=== PATIENT | male | born 1975 | race Caucasian/White ===

== ENCOUNTER 2018-02-24 10:46 | Emergency (ER) | payer BC ==
[2018-02-24 11:51] LABS: ABS Basophils 0 10^3/ul (0-0.2); ABS Eosinophils 0 10^3/ul (0-0.6); ABS Lymphocytes 0.6 10^3/ul (1.0-4.8); ABS Monocytes 0.3 10^3/ul (0-0.8); ABS Neutrophils 6.8 10^3/ul (1.5-7.7); ABS Nucleated RBC 0 10^3/ul; Eosinophil % 0.5 % (0-6); Hematocrit 44 % (42-52); Hemoglobin 15.1 g/dl (14.0-18.0); Lymphocyte % 7.3 % (25-47); Mean Corpuscular HGB Conc 34 g/dl (31-36); Mean Corpuscular Hemoglobin 31 pg (27-31); Mean Corpuscular Volume 90 fL (80-94); Nucleated Red Blood Cells % 0; Platelet Count 193 10^3/ul (150-450); Red Blood Count 4.88 10^6/ul (4.00-5.40); Red Cell Distribution Width 13 % (10.5-15); White Blood Count 7.8 10^3/ul (3.5-10.8)
[2018-02-24 12:01] LABS: INR 0.87 (0.77-1.02)
[2018-02-24 12:05] LABS: EGFR Non-African American 27.2 (>60)
--- NOTE | 2018-02-24 12:30 | RAD ---
Indication: Sternal chest pain. Post partial RIGHT lung resection approximately 20 years ago. Comparison: March 04, 2014 CT. Technique: Upright AP 1158 hours Report: Mild bilateral apical pleural-parenchymal scarring. Minimal linear scarring at the RIGHT lung base approximating the diaphragm corresponding with the prior surgical site based on correlation with CT. No alveolar consolidation, suspicious focal pulmonary lesion, pleural effusion, or pneumothorax. The heart, pulmonary vasculature, and mediastinal contours are unremarkable. IMPRESSION: #. No evidence for acute intrathoracic disease.
--- NOTE | 2018-02-24 14:44 | ECHO ---
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 Technical Comments: The study quality is good. Completed at 1318. Left Ventricle: The left ventricular chamber size is normal. Mild concentric left ventricular hypertrophy is observed. Left ventricular systolic function is at the lower limits of normal. The estimated ejection fraction is 50-55%. Normal left ventricular diastolic filling is observed. Left Atrium: The left atrial chamber size is normal. Right Ventricle: The right ventricular cavity size is normal. The right ventricular global systolic function is normal. Right Atrium: The right atrial cavity size is normal. Aortic Valve: The aortic valve is trileaflet. There is no evidence of aortic regurgitation. There is no evidence of aortic stenosis. Mitral Valve: The mitral valve leaflets are mildly thickened. There is a trace of mitral regurgitation. There is no evidence of mitral stenosis. Tricuspid Valve: The tricuspid valve leaflets are normal. There is trace tricuspid regurgitation. Unable to estimate the right ventricular systolic pressure. There is no tricuspid stenosis. Pulmonic Valve: The pulmonic valve appears normal. There is trace to mild pulmonic regurgitation. There is no pulmonic stenosis. Pericardium: There is no significant pericardial effusion. Aorta: There is mild dilatation of the ascending aorta. There is no dilatation of the aortic arch. There is no dilation of the aortic root. Pulmonary Artery: The main pulmonary artery is not well visualized. Venous: The inferior vena cava appears normal in size. There is a greater than 50% respiratory change in the inferior vena cava dimension. Conclusions The left ventricular chamber size is normal. Mild concentric left ventricular hypertrophy is observed. Left ventricular systolic function is at the lower limits of normal. The estimated ejection fraction is 50-55%. Normal left ventricular diastolic filling is observed. The left atrial chamber size is normal. The right ventricular cavity size is normal. The right ventricular global systolic function is normal. There is no significant pericardial effusion. No significant valvular abnormalities noted There is mild dilatation of the ascending aorta. There is no dilation of the aortic root. Compared to prior study from 09/2017, LVEF has improved from 45-50% Measurements Name Value Normal Range RVIDd (AP) 2D 2.7 cm (0.9 - 2.6) RVDdMajor (2D) 3.9 cm (2.2 - 4.4) RAd ISD 4CH 4.7 cm (3.4 - 4.9) RA (A4C)W 3.8 cm (2.9 - 4.6) IVSd (2D) 1.3 cm (0.6 - 1) LVPWd (2D) 1.3 cm (0.6 - 1) LVIDd (2D) 4.4 cm (3.6 - 5.4) LVIDs (2D) 2.8 cm - LV FS (2D) 36 % (25 - 45) Aortic Annulus 2.2 cm (1.4 - 2.6) Ao root diameter (2D) 3.5 cm (2.1 - 3.5) Ascending Ao 3.6 cm (2.1 - 3.4) Aortic arch 2.1 cm (1.8 - 3.4) Descending Ao 1.3 cm - LA dimension (AP) 2D 3.5 cm (2.3 - 3.8) LAd ISD 4CH 3.9 cm (2.9 - 5.3) LA ISD 4CH W 3.5 cm (2.5 - 4.5) Name Value Normal Range LA ESV SP 4CH (A/L) 34 ml - LA ESV SP 2CH (A/L) 40 ml - LA ESV BP (A/L) 41 ml - LA ESV BP (A/L) index 20.94 ml/m2 - LA ESV SP 4CH (MOD) 29 ml - LA ESV SP 2CH (MOD) 37 ml - Name Value Normal Range MV E-wave Vmax 0.6 m/sec - MV deceleration time 160 msec - MV A-wave Vmax 0.5 m/sec - MV E:A ratio 1.07 ratio - LV septal e' Vmax 0.1 m/sec - LV lateral e' Vmax 0.1 m/sec - LV E:e' septal ratio 6 ratio - LV E:e' lateral ratio 6 ratio - Name Value Normal Range AV Vmax 1.2 m/sec - AV VTI 26.3 cm - AV peak gradient 5.95 mmHg - AV mean gradient 3.1 mmHg - LVOT Vmax 0.8 m/sec - LVOT VTI 16.5 cm - LVOT peak gradient 2.56 mmHg - LVOT mean gradient 1.27 mmHg - Name Value Normal Range IVC diameter 1.4 cm - Name Value Normal Range PV Vmax 1 m/sec - PV peak gradient 4.14 mmHg -
--- NOTE | 2018-02-24 15:30 | ED ---
HPI Chest Pain - HPI Summary HPI Summary: Sternal CP x 2-3 days. Intermittent. Worse w/ leaning forward. Denies .... Missed evening doses of metoprolol previous 2 nights (took last night and this morning w/ other BP meds, losartan and amlidipine). - History of Current Complaint Chief Complaint: EDChestPainROMI Time Seen by Provider: 02/24/18 11:06 Hx Obtained From: Patient, Family/Insulation Worker Apprentice - Pain Intensity: 1 - Allergy/Home Medications Allergies/Adverse Reactions: Allergies Allergy/AdvReac Type Severity Reaction Status Date / Time adhesive tape Allergy Rash Verified 02/24/18 12:58 methotrexate Allergy Anaphylatic Verified 02/24/18 12:58 Shock Home Medications: Home Medications Losartan TAB* [Cozaar TAB*] 25 mg PO DAILY 02/24/18 [History Confirmed 02/24/18] Metoprolol Succinate XL TAB* [Toprol XL TAB*] 37.5 mg PO DAILY 02/24/18 [ History Confirmed 02/24/18] amLODIPine TAB* [Norvasc 5 mg TAB*] 5 mg PO DAILY 02/24/18 [History Confirmed ] PMH/Surg Hx/FS Hx/Imm Hx Endocrine/Hematology History: Denies: Hx Diabetes, Hx Thyroid Disease Cardiovascular History: Reports: Hx Hypertension Respiratory History: Denies: Hx Asthma, Hx Chronic Obstructive Pulmonary Disease (COPD) GI History: Denies: Hx Ulcer - Cancer History Cancer Type, Location and Year: [facility]-2000 - Surgical History Surgery Procedure, Year, and Place: total knee resection-RIGHT 2001 and 2010. Right lung surgery 2002 Infectious Disease History: No Infectious Disease History: Denies: Hx Clostridium Difficile, Hx Hepatitis, Hx Human Immunodeficiency Virus (HIV), Hx of Known/Suspected MRSA, Hx Shingles, Hx Tuberculosis, Hx Known/ Suspected VRE, Hx Known/Suspected VRSA, History Other Infectious Disease, Traveled Outside the [place] in Last 30 Days - Social History Alcohol Use: Daily Substance Use Type: Reports: None Smoking Status (MU): Light Every Day Tobacco Smoker Type: Cigarettes Amount Used/How Often: Light smoker Length of Time of Smoking/Using Tobacco: 3-4 years Physical Exam Vital Signs On Initial Exam: Initial Vitals Temp Pulse Resp BP Pulse Ox 98.7 F 65 14 136/90 99 02/24/18 11:00 08/17/18 11:00 02/24/18 11:00 02/24/18 11:00 02/24/18 11:00 Diagnostics - Vital Signs Vital Signs Temp Pulse Resp BP Pulse Ox 02/24/18 14:08 12 156/95 02/24/18 14:00 12 02/24/18 13:38 65 13 142/95 99 02/24/18 13:12 97 02/24/18 13:08 65 12 142/95 98 02/24/18 13:00 66 14 97 02/24/18 12:38 60 14 123/82 97 02/24/18 12:08 72 16 148/105 97 02/24/18 12:00 64 13 98 02/24/18 11:38 64 16 148/99 97 02/24/18 11:08 66 14 140/96 98 02/24/18 11:00 98.7 F 65 14 136/90 99 - Laboratory Lab Results: Lab Results 02/24/18 02/24/18 02/24/18 Range/Units 11:38 11:38 11:38 WBC (3.5-10.8) 10^3/ul RBC (4.00-5.40) 10^6/ul Hgb (14.0-18.0) g/dl Hct (42-52) % MCV (80-94) fL MCH (27-31) pg MCHC (31-36) g/dl RDW (10.5-15) % Plt Count (150-450) 10^3/ul MPV (7.4-10.4) um3 Neut % (Auto) (38-83) % Lymph % (Auto) (25-47) % Cotton % (Auto) (0-7) % Eos % (Auto) (0-6) % Baso % (Auto) (0-2) % Absolute Neuts (auto) (1.5-7.7) 10^3/ul Absolute Lymphs (auto) (1.0-4.8) 10^3/ul Absolute Monos (auto) (0-0.8) 10^3/ul Absolute Eos (auto) (0-0.6) 10^3/ul Absolute Basos (auto) (0-0.2) 10^3/ul Absolute Nucleated RBC 10^3/ul Nucleated RBC % ESR (0-14) mm/Hr INR (Anticoag Therapy) 0.87 (0.77-1.02) APTT 30.9 (26.0-36.3) seconds Sodium 137 (135-145) mmol/L Potassium 4.5 (3.5-5.0) mmol/L Chloride 107 (101-111) mmol/L Carbon Dioxide 23 (22-32) mmol/L Anion Gap 7 (2-11) mmol/L BUN 32 H (6-24) mg/dL Creatinine 2.58 H (0.67-1.17) mg/dL Est GFR ( Amer) 32.9 (>60) Est GFR (Non-Af Amer) 27.2 (>60) BUN/Creatinine Ratio 12.4 (8-20) Glucose 83 (70-100) mg/dL Lactic Acid 0.7 (0.5-2.0) mmol/L Calcium 9.5 (8.6-10.3) mg/dL Magnesium 2.1 (1.9-2.7) mg/dL Total Bilirubin 0.70 (0.2-1.0) mg/dL AST 18 (13-39) U/L ALT 10 (7-52) U/L Alkaline Phosphatase 47 (34-104) U/L Troponin I 0.00 (<0.04) ng/mL C-Reactive Protein 2.13 (<8.01) mg/L Total Protein 7.3 (6.4-8.9) g/dL Albumin 4.4 (3.2-5.2) g/dL Globulin 2.9 (2-4) g/dL Albumin/Globulin Ratio 1.5 (1-3) TSH 0.93 (0.34-5.60) mcIU/mL //18 Range/Units 11:39 WBC 7.8 (3.5-10.8) 10^3/ul RBC 4.88 (4.00-5.40) 10^6/ul Hgb 15.1 (14.0-18.0) g/dl Hct 44 (42-52) % MCV 90 (80-94) fL MCH 31 (27-31) pg MCHC 34 (31-36) g/dl RDW 13 (10.5-15) % Plt Count 193 (150-450) 10^3/ul MPV 8.0 (7.4-10.4) um3 Neut % (Auto) 87.3 H (38-83) % Lymph % (Auto) 7.3 L (25-47) % Cotton % (Auto) 4.5 (0-7) % Eos % (Auto) 0.5 (0-6) % Baso % (Auto) 0.4 (0-2) % Absolute Neuts (auto) 6.8 (1.5-7.7) 10^3/ul Absolute Lymphs (auto) 0.6 L (1.0-4.8) 10^3/ul Absolute Monos (auto) 0.3 (0-0.8) 10^3/ul Absolute Eos (auto) 0 (0-0.6) 10^3/ul Absolute Basos (auto) 0 (0-0.2) 10^3/ul Absolute Nucleated RBC 0 10^3/ul Nucleated RBC % 0 ESR 6 (0-14) mm/Hr INR (Anticoag Therapy) (0.77-1.02) APTT (26.0-36.3) seconds Sodium (135-145) mmol/L Potassium (3.5-5.0) mmol/L Chloride (101-111) mmol/L Carbon Dioxide (22-32) mmol/L Anion Gap (2-11) mmol/L BUN (6-24) mg/dL Creatinine (0.67-1.17) mg/dL Est GFR ( Amer) (>60) Est GFR (Non-Af Amer) (>60) BUN/Creatinine Ratio (8-20) Glucose (70-100) mg/dL Lactic Acid (0.5-2.0) mmol/L Calcium (8.6-10.3) mg/dL Magnesium (1.9-2.7) mg/dL Total Bilirubin (0.2-1.0) mg/dL AST (13-39) U/L ALT (7-52) U/L Alkaline Phosphatase (34-104) U/L Troponin I (<0.04) ng/mL C-Reactive Protein (<8.01) mg/L Total Protein (6.4-8.9) g/dL Albumin (3.2-5.2) g/dL Globulin (2-4) g/dL Albumin/Globulin Ratio (1-3) TSH (0.34-5.60) mcIU/mL Result Diagrams: 02/24/18 11:39 02/24/18 11:38 Lab Statement: Any lab studies that have been ordered have been reviewed, and results considered in the medical decision making process. Discharge - Discharge Plan Referrals: Maty Orosco MD [Primary Care Provider] -
[2018-02-24 16:10] VITALS: BP 140/99
== END 2018-02-24 16:08 | disposition home or self-care (01) ==
LOC: ED 10:46
DX: R07.2 Precordial pain (principal); I10 Essential (primary) hypertension; Z88.8 Allergy status to other drugs, medicaments and biological substances; Z91.048 Other nonmedicinal substance allergy status; F17.210 Nicotine dependence, cigarettes, uncomplicated
CPT/HCPCS: 36415; 71045; 80053; 83605; 83735; 84443; 84484; 85025; 85610; 85652; 85730; 86140; 93005; 93306; 99283